=== PATIENT | female | born 1960 | race Caucasian/White ===

== ENCOUNTER 2017-11-22 00:14 | Emergency (ER) | payer SELFPAY ==
[2017-11-22] MEDS ORDERED: FAMOTIDINE 20 MG/2 ML SDV IVP ONE (00:46)
[2017-11-22] MEDS ORDERED: KETOROLAC 15 MG/1 ML SDV IVP ONE (00:46)
[2017-11-22] MEDS ORDERED: NS 1,000 ML IV ONE (00:46)
--- NOTE | 2017-11-22 00:46 | EDPHY ---
H & P Stated Complaint: ATE SOME BAD FISH, BURNING AND CRAMPS IN [place]OM[place] Time Seen by Provider: 11/22/17 00:32 HPI/ROS: Chief Complaint: Abdominal pain HPI: 57-year-old woman began having abdominal cramping this morning. No nausea vomiting or diarrhea. She states that this happened after she ate some salmon had about 930. She has had a similar episode after eating old [place] in the past. No fevers or chills. Pain is described as a crampy pain which is"quite severe". She also has a history of an allergic reaction after eating fish in the past. She did take a [place] antihistamine prior to presentation. Denies any other medical history other than celiac disease. Takes no medications. No allergies to medications. ROS: 10 systems were reviewed and were negative except those elements noted in the HPI. PMH: Celiac disease Social History: No smoking, no alcohol, no recreational drug use Family History: non-contributory Physical Exam: Gen: Awake, Alert, No Distress HEENT: Nose: no rhinorrhea Eyes: PERRLA, EOMI Mouth: Moist mucosa Neck: Supple, no JVD Chest: nontender, lungs clear to auscultation Heart: S1, S2 normal, no murmur Abd: Soft, moderate epigastric tenderness, no lower abdominal tenderness, no guarding, no guarding Back: no CVA tenderness, no midline tenderness Ext: no edema, non-tender Skin: no rash Neuro: CN II-XII intact, Sensation grossly intact, Strength 5/5 in bilateral upper and lower extremities - Personal History Current Tetanus/Diphtheria Vaccine: Unsure Current Tetanus Diphtheria and Acellular Pertussis (TDAP): Unsure - Medical/Surgical History Hx Asthma: No Hx Chronic Respiratory Disease: No Hx Diabetes: No Hx Cardiac Disease: No Hx Renal Disease: No Hx Cirrhosis: No Hx Alcoholism: No Hx HIV/AIDS: No Hx Splenectomy or Spleen Trauma: No Other PMH: Celiac - Social History Smoking Status: Never smoked Constitutional: Initial Vital Signs Temperature (C) 36.6 C 11/22/17 00:16 Heart Rate 72 11/22/17 00:16 Respiratory Rate 18 11/22/17 00:16 Blood Pressure 133/71 H 11/22/17 00:16 O2 Sat (%) 98 11/22/17 00:16 O2 Delivery Mode Room Air Allergies/Adverse Reactions: gluten Allergy (Verified 11/22/17 00:20) Home Medications: Medication Instructions Recorded NK [No Known Home Meds] 07/11/15 Medical Decision Making ED Course/Re-evaluation: 57-year-old woman presented initially abdominal cramping. This is since resolved. Laboratory evaluations are unremarkable. Abdomen is now soft and nontender. She is without complaint. She is tolerating p. O.. She is asking to go home. Will discharge with follow-up with primary care physician. - Data Points Laboratory Results: Laboratory Results 11/22/17 01:00 11/22/17 01:00 11/22/17 11/22/17 01:00 01:00 WBC 8.35 10^3/uL 10^3/uL (3.80-9.50) RBC 4.77 10^6/uL 10^6/uL (4.18-5.33) Hgb 15.3 g/dL g/dL (12.6-16.3) Hct 45.3 % % (38.0-47.0) MCV 95.0 fL fL (81.5-99.8) MCH 32.1 pg pg (27.9-34.1) MCHC 33.8 g/dL g/dL (32.4-36.7) RDW 12.7 % % (11.5-15.2) Plt Count 194 10^3/uL 10^3/uL (150-400) MPV 11.6 fL fL (8.7-11.7) Neut % (Auto) 56.6 % % (39.3-74.2) Lymph % (Auto) 33.8 % % (15.0-45.0) [place] % (Auto) 8.0 % % (4.5-13.0) Eos % (Auto) 0.8 % % (0.6-7.6) Baso % (Auto) 0.6 % % (0.3-1.7) Nucleat RBC Rel Count 0.0 % % (0.0-0.2) Absolute Neuts (auto) 4.72 10^3/uL 10^3/uL (1.70-6.50) Absolute Lymphs (auto) 2.82 10^3/uL 10^3/uL (1.00-3.00) Absolute Monos (auto) 0.67 10^3/uL 10^3/uL (0.30-0.80) Absolute Eos (auto) 0.07 10^3/uL 10^3/uL (0.03-0.40) Absolute Basos (auto) 0.05 10^3/uL 10^3/uL (0.02-0.10) Absolute Nucleated RBC 0.00 10^3/uL 10^3/uL (0-0.01) Immature Gran % 0.2 % % (0.0-1.1) Immature Gran # 0.02 10^3/uL 10^3/uL (0.00-0.10) Sodium 142 mEq/L mEq/L (135-145) Potassium 3.7 mEq/L mEq/L (3.3-5.0) Chloride 104 mEq/L mEq/L (97-110) Carbon Dioxide 28 mEq/l mEq/l (22-31) Anion Gap 10 mEq/L mEq/L (8-16) BUN 23 mg/dL mg/dL (7-23) Creatinine 0.7 mg/dL mg/dL (0.6-1.0) Estimated GFR > 60 Glucose 104 mg/dL H mg/dL (70-100) Calcium 10.2 mg/dL mg/dL (8.5-10.4) Total Bilirubin 0.3 mg/dL mg/dL (0.1-1.4) AST 34 IU/L IU/L (14-46) ALT 31 IU/L IU/L (9-52) Alkaline Phosphatase 60 IU/L IU/L (38-126) Total Protein 7.6 g/dL g/dL (6.3-8.2) Albumin 4.8 g/dL g/dL (3.5-5.0) Lipase 89 IU/L IU/L (23-300) Medications Given: Discontinued Medications Famotidine (Pepcid) 20 mg IVP EDNOW ONE Stop: 11/22/17 00:47 Last Admin: 11/22/17 00:58 Dose: 20 mg Sodium Chloride (Ns) 1,000 mls @ 0 mls/hr IV ONCE ONE; Wide Open PRN Reason: Protocol Stop: 11/22/17 00:47 Last Admin: 11/22/17 00:57 Dose: 1,000 mls Ketorolac Tromethamine (Toradol) 15 mg IVP EDNOW ONE Stop: 11/22/17 00:47 Last Admin: 11/22/17 00:58 Dose: 15 mg Departure - Departure Disposition: Home, Routine, Self-Care Clinical Impression: Abdominal pain Condition: Good Instructions: Abdominal Pain (ED) Additional Instructions: Follow up with primary care physician in 2-3 days for further evaluation. Return to the emergency department for increasing abdominal pain, uncontrolled nausea vomiting, uncontrolled diarrhea, fevers or chills, or any other concerns. Referrals: [facility] [Primary Care Provider] - As per Instructions
[2017-11-22 01:11] LABS: PLATELET COUNT 194 10^3/uL (150-400)
[2017-11-22 02:50] VITALS: BP 100/68
== END 2017-11-22 02:50 | disposition home or self-care (01) ==
DX: R10.9 Unspecified abdominal pain (principal); K90.0 Celiac disease
CPT/HCPCS: 96374; J1885

== ENCOUNTER → 2018-06-03 | Outpatient (CLI) | payer OTHER | LOC: BMCIMAGING 13:30 | PROVIDERS: ATTEND Emergency Medicine | DX: S92.354A Nondisplaced fracture of fifth metatarsal bone, right foot, initial encounter for closed fracture (principal) ==

== ENCOUNTER → 2018-06-12 | Outpatient (CLI) | payer OTHER | LOC: BMCIMAGING 14:43 | PROVIDERS: ATTEND Podiatrist Foot & Ankle Surgery | DX: S92.354D Nondisplaced fracture of fifth metatarsal bone, right foot, subsequent encounter for fracture with routine healing (principal) ==

== ENCOUNTER → 2018-07-01 | Outpatient (CLI) | payer OTHER | LOC: BMCIMAGING 14:57 | PROVIDERS: ATTEND Podiatrist Foot & Ankle Surgery | DX: S92.351A Displaced fracture of fifth metatarsal bone, right foot, initial encounter for closed fracture (principal) ==